=== PATIENT | female | born 1975 | race Two or more races ===

== ENCOUNTER 2023-12-16 10:10 | Day surgery (SDC) | payer BC ==
[2023-12-11 10:42] VITALS: BMI 23.9
[~2023-12-16 10:10] MED LIST: CEFAZOLIN 2 GM in DEXTROSE 5%-WATER - 50 ML IVPB ONE
[2023-12-16 10:33] VITALS: TEMP 98.9
[2023-12-16] MEDS ORDERED: LIDOCAINE HCL 1%, 10 MG/ML (20ML VIAL) ONE (11:01)
[2023-12-16] MEDS ORDERED: BUPIVACAINE HCL/PF 0.5% (5MG/ML) 10 ML VIAL ONE (11:01)
[2023-12-16] MEDS ORDERED: MIDAZOLAM HCL 2 MG/2 ML SINGLE DOSE VIAL ONE (11:03)
[2023-12-16] MEDS ORDERED: ONDANSETRON 4 MG/2 ML VIAL ONE (11:03)
[2023-12-16] MEDS ORDERED: PROPOFOL 40 ML ONE (11:03)
[2023-12-16] MEDS ORDERED: ceFAZolin SODIUM 1 GM VIAL ONE (11:03)
[2023-12-16] MEDS ORDERED: DEXAMETHASONE SOD PHOSPHATE 4 MG/1 ML VIAL ONE (11:03)
[2023-12-16 12:51] VITALS: RESP 18
[2023-12-16 12:56] VITALS: BP 111/80; PULSE 69
== END 2023-12-16 13:00 | disposition home or self-care (01) ==
LOC: FASU 10:10
PROVIDERS: ATTEND Surgery
PROC: 0WBF0ZZ Excision of Abdominal Wall, Open Approach (ICD-10-PCS; principal; 2023-12-16 11:29)
DX: L72.8 Other follicular cysts of the skin and subcutaneous tissue (principal)
CPT/HCPCS: 81025; 88304-TC